=== PATIENT | female | born 1960 ===

== ENCOUNTER 2017-05-17 14:35 | Emergency (ER) | payer OTHER ==
[2017-05-17 14:35] VITALS: BMI 27.3
--- NOTE | 2017-05-17 15:04 | ED PDOC ---
Arrival/HPI - General Historian: Patient - History of Present Illness Time/Duration: Other (see hpi) Quality: Aching Context: Home <Marguerite Jessica P - Last Filed: 05/17/17 14:58> <Salty Poon P - Last Filed: 05/17/17 17:49> - General Chief Complaint: Back Pain Time Seen by Provider: 05/17/17 14:45 - History of Present Illness Narrative History of Present Illness (Text): 05/17/17 14:58 This 56 yo female with pmh sciatica, presents to this ED c/o right lower back pain x 3 days. 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 Patient stated she has had similar symptoms in the past. Patient denies trauma, fever, sob, cp, abdominal pain, pelvic pain, hematuria, urinary symptoms, skin rash, recent travel, sick contact , weakness, paresthesias, urinary retention, GI/ incontinence, n/v, dizziness , or abnormal gait. (Marguerite Jessica) Past Medical History - Provider Review Nursing Documentation Reviewed: Yes - Past History Past History: No Previous - Infectious Disease Hx of Infectious Diseases: None - Cardiac Hx Hypertension: Yes - Endocrine/Metabolic Hx Diabetes Mellitus Type 2: Yes - Integumentary Other/Comment: r elbow scar - Musculoskeletal/Rheumatological Hx Falls: Yes (slipped on ice 4 yrs ago fx r elbow) - Psychiatric Hx Psychophysiologic Disorder: No Hx Anxiety: Yes Hx Bipolar Disorder: No Hx Depression: No Hx Emotional Abuse: No Hx Hallucinations: No Hx Panic Disorder: No Hx Post Traumatic Stress Disorder: No Hx Psychosis: No Hx Physical Abuse: No Hx Schizophrenia: No Hx Sexual Abuse: No Hx Substance Use: No - Surgical History Hx Orthopedic Surgery: Yes - Anesthesia Hx Anesthesia: No Hx Anesthesia Reactions: No Hx Malignant Hyperthermia: No - Suicidal Assessment Feels Threatened In Home Enviroment: No <Marguerite Jessica P - Last Filed: 05/17/17 14:58> Family/Social History - Physician Review Nursing Documentation Reviewed: Yes Family/Social History: Other (noncontributory) Smoking Status: Never Smoked Hx Alcohol Use: No Hx Substance Use: No Hx Substance Use Treatment: No <Marguerite Jessica P - Last Filed: 05/17/17 14:58> Allergies/Home Meds <Marguerite Jessica P - Last Filed: 05/17/17 14:58> <Poon,Salty P - Last Filed: 05/17/17 17:49> Allergies/Adverse Reactions: Allergies No Known Allergies Allergy (Verified 11/19/11 12:26) Home Medications: Home Meds Medication Instructions Recorded Confirmed Atenolol [Tenormin] 50 mg PO DAILY 05/17/17 05/17/17 hydroCHLOROthiazide [Microzide] 12.5 mg PO DAILY 05/17/17 05/17/17 Review of Systems - Review of Systems Constitutional: Normal. absent: Fatigue, Weight Change, Fevers Eyes: Normal ENT: Normal Respiratory: Normal. absent: SOB, Cough, Sputum Cardiovascular: Normal. absent: Chest Pain Gastrointestinal: Normal. absent: Abdominal Pain, Nausea, Vomiting Genitourinary Female: Normal. absent: Dysuria, Frequency, Hematuria, Vaginal Bleeding, Vaginal Discharge Musculoskeletal: Back Pain. absent: Neck Pain, Joint Swelling Skin: Normal. absent: Rash Neurological: Normal. absent: Headache, Dizziness, Focal Weakness, Gait Changes , Speech Changes, Facial Droop, Disequilibrium, Seizure Endocrine: Normal Hemo/Lymphatic: Normal Psychiatric: Normal <Marguerite Jessica P - Last Filed: 05/17/17 14:58> Physical Exam Temperature: Afebrile Blood Pressure: Hypertensive Pulse: Regular Respiratory Rate: Normal Appearance: Positive for: Well-Appearing, Non-Toxic, Comfortable Pain Distress: None Mental Status: Positive for: Alert and Oriented X 3 - Systems Exam Head: Present: Atraumatic, Normocephalic Pupils: Present: PERRL Extroacular Muscles: Present: EOMI Conjunctiva: Present: Normal Mouth: Present: Moist Mucous Membranes Neck: Present: Normal Range of Motion Respiratory/Chest: Present: Clear to Auscultation, Good Air Exchange. No: Respiratory Distress, Accessory Muscle Use Cardiovascular: Present: Regular Rate and Rhythm, Normal S1, S2. No: Murmurs Abdomen: Present: Normal Bowel Sounds. No: Tenderness, Distention, Peritoneal Signs Back: Present: Normal Inspection, Paraspinal Tenderness (Mild right paravertebral tenderness. no vertebral point tenderness. No vertebral step off. No skin rash). No: CVA Tenderness, Midline Tenderness Upper Extremity: Present: Normal Inspection, Normal ROM, NORMAL PULSES, Neurovascularly Intact, Capillary Refill < 2s. No: Cyanosis, Edema Lower Extremity: Present: Normal Inspection, NORMAL PULSES, Normal ROM. No: Edema Neurological: Present: GCS=15, CN II-XII Intact, Speech Normal, Motor Func Grossly Intact, Normal Sensory Function, Normal Cerebellar Funct, Gait Normal, Memory Normal Skin: Present: Warm, Dry, Normal Color. No: Rashes Psychiatric: Present: Alert, Oriented x 3, Normal Insight, Normal Concentration <Marguerite Jessica P - Last Filed: 05/17/17 14:58> Vital Signs Temp Pulse Resp BP Pulse Ox 05/17/17 15:35 82 16 149/89 100 05/17/17 14:35 98.4 F 91 H 18 151/103 H 100 Medical Decision Making Re-evaluation Time: 15:15 Reassessment Condition: Re-examined, Improved <Marguerite Jessica P - Last Filed: 05/17/17 14:58> <Salty Poon P - Last Filed: 05/17/17 17:49> ED Course and Treatment: 05/17/17 15:06 Patient stated she ran out of her BP medication today. Patient stated she will be picking up her refill later today. She denies [place], dizziness, diplopia, dysarthria, neck stiffness, weakness, paresthesias, or abnormal gait. 05/17/17 15:16 Re-evaluation. Patient feels better. Discussed results and plan with patient who expresses understanding. All questions answered and there is agreement with the plan to discharge home with instructions. Patient stable for discharge. Return if symptoms persist or worsen. (Marguerite Jessica) - Medication Orders Current Medication Orders: Discontinued Medications Acetaminophen (Tylenol 325mg Tab) 975 mg PO STAT STA Stop: 05/17/17 15:05 Last Admin: 05/17/17 15:32 Dose: 975 mg MAR Pain/Vitals Document 05/17/17 15:32 HI (Rec: 05/17/17 15:33 AK [id number]) Pain Reassessment Is This A Pain ReAssessment? No Sleep Is patient sleeping during reassessment? No Presence of Pain Presence of Pain Yes Pain Scale Used Pain Scale Used Numeric Location Pain Location Body Site Back - Scribe Statement The provider has reviewed the documentation as recorded by the Scribe <Salty Poon P - Last Filed: 05/17/17 17:49> Disposition/Present on Arrival - Present on Arrival Any Indicators Present on Arrival: No History of DVT/PE: No History of Uncontrolled Diabetes: No Urinary Catheter: No History of Decub. Ulcer: No History Surgical Site Infection Following: None - Disposition Have Diagnosis and Disposition been Completed?: Yes Disposition Time: 15:17 Patient Plan: Discharge <Marguerite Jessica P - Last Filed: 05/17/17 14:58> <Salty Poon P - Last Filed: 05/17/17 17:49> - Disposition Diagnosis: Back pain Disposition: HOME/ ROUTINE Condition: GOOD Discharge Instructions (ExitCare): Back Pain (ED) Additional Instructions: Make sure to take your home medication today for your high blood pressure. Take medication for back pain as instructed with food. return to emergency if symptoms worsen. Do not drive or operate machinery if you take Valium. Prescriptions: Acetaminophen with Codeine [Tylenol with Codeine #3 Tablet] 1 each PO Q6H PRN # 15 tablet PRN Reason: Pain, Severe (8-10) Diazepam [Valium] 2 mg PO DAILY #7 tablet Referrals: Terry Vaughn MD [Primary Care Provider] - Follow up with primary Forms: [facility] (Nepalese), WORK NOTE
[2017-05-17 15:10] VITALS: TEMP 98.4; O2SAT 100
[2017-05-17 16:16] VITALS: BP 149/89; PULSE 82; RESP 16
== END 2017-05-17 15:35 | disposition home or self-care (01) ==
LOC: ED 14:35
DX: M54.5 Low back pain (principal)

== ENCOUNTER 2017-08-29 15:23 | Emergency (ER) | payer OTHER ==
[2017-08-29 15:49] VITALS: BMI 27.9
--- NOTE | 2017-08-29 16:31 | ED PDOC ---
Arrival/HPI - General Chief Complaint: Finger,Hand,&Wrist Time Seen by Provider: 08/29/17 16:29 Historian: Patient - History of Present Illness Narrative History of Present Illness (Text): 08/29/17 16:31 This 57 yo female presents to this ED c/o right index pain and swelling x 2 days. Patient stated she accidentally hit finger against wall at home. She thinks she bent her finger "hard". Patient is right hand dominant. Denies other somatic complains. Time/Duration: Other (see hpi) Context: Home Past Medical History - Provider Review Nursing Documentation Reviewed: Yes - Past History Past History: No Previous - Infectious Disease Hx of Infectious Diseases: None - Cardiac Hx Hypertension: Yes - Endocrine/Metabolic Hx Diabetes Mellitus Type 2: Yes - Integumentary Other/Comment: r elbow scar - Musculoskeletal/Rheumatological Hx Falls: Yes (slipped on ice 4 yrs ago fx r elbow) - Psychiatric Hx Psychophysiologic Disorder: No Hx Anxiety: Yes Hx Bipolar Disorder: No Hx Depression: No Hx Emotional Abuse: No Hx Hallucinations: No Hx Panic Disorder: No Hx Post Traumatic Stress Disorder: No Hx Psychosis: No Hx Physical Abuse: No Hx Schizophrenia: No Hx Sexual Abuse: No Hx Substance Use: No - Surgical History Hx Orthopedic Surgery: Yes Other/Comment: L arm sx - Anesthesia Hx Anesthesia: Yes Hx Anesthesia Reactions: No Hx Malignant Hyperthermia: No - Suicidal Assessment Feels Threatened In Home Enviroment: No Family/Social History - Physician Review Nursing Documentation Reviewed: Yes Family/Social History: Other (noncontributory) Smoking Status: Never Smoked Hx Alcohol Use: No Hx Substance Use: No Hx Substance Use Treatment: No Allergies/Home Meds Allergies/Adverse Reactions: Allergies No Known Allergies Allergy (Verified 11/19/11 12:26) Home Medications: Home Meds Medication Instructions Recorded Confirmed Atenolol [Tenormin] 50 mg PO DAILY 05/17/17 08/29/17 hydroCHLOROthiazide [Microzide] 12.5 mg PO DAILY 05/17/17 08/29/17 Review of Systems - Review of Systems Constitutional: Normal. absent: Fatigue, Weight Change, Fevers, Night Sweats Eyes: Normal ENT: Normal Respiratory: Normal Cardiovascular: Normal Gastrointestinal: Normal Genitourinary Female: Normal Musculoskeletal: Other ((+) right index finger pain) Skin: Normal Neurological: Normal Endocrine: Normal Hemo/Lymphatic: Normal Psychiatric: Normal Physical Exam Vital Signs Temp Pulse Resp BP Pulse Ox 08/29/17 17:15 79 18 97 08/29/17 15:55 166/83 H 08/29/17 15:53 98.7 F 82 18 167/108 H 97 Temperature: Afebrile Blood Pressure: Normal Pulse: Regular Respiratory Rate: Normal Appearance: Positive for: Well-Appearing, Non-Toxic, Comfortable Pain Distress: None Mental Status: Positive for: Alert and Oriented X 3 - Systems Exam Head: Present: Atraumatic, Normocephalic Pupils: Present: PERRL Extroacular Muscles: Present: EOMI Conjunctiva: Present: Normal Mouth: Present: Moist Mucous Membranes Upper Extremity: Present: Normal ROM, NORMAL PULSES, Tenderness (Mild tenderness and swelling right 2nd MPJ area), Swelling, Neurovascularly Intact, Capillary Refill < 2s. No: Cyanosis, Edema, Erythema, Temperature Abnormalties , Deformity Lower Extremity: Present: Normal Inspection, Normal ROM Neurological: Present: GCS=15, CN II-XII Intact, Speech Normal Skin: Present: Warm, Dry, Normal Color. No: Rashes Psychiatric: Present: Alert, Oriented x 3, Normal Insight, Normal Concentration Medical Decision Making ED Course and Treatment: 08/29/17 17:24 Patient is wearing a finger splint already. Re-evaluation. Patient feels better. Discussed results and plan with patient who expresses understanding. All questions answered and there is agreement with the plan to discharge home with instructions. Patient stable for discharge. Return if symptoms persist or worsen. Re-evaluation Time: 17:25 Reassessment Condition: Re-examined, Improved - RAD Interpretation Narrative RAD Interpretations (Text): 08/29/17 17:25 Finger x-rays: No fx. Radiology Orders: 08/29/17 16:29 HAND RIGHT 2ND DIGIT (FINGER) [RAD] Stat - Medication Orders Current Medication Orders: Discontinued Medications Acetaminophen (Tylenol 325mg Tab) 650 mg PO STAT STA Stop: 08/29/17 16:31 Disposition/Present on Arrival - Present on Arrival Any Indicators Present on Arrival: No History of DVT/PE: No History of Uncontrolled Diabetes: No Urinary Catheter: No History of Decub. Ulcer: No History Surgical Site Infection Following: None - Disposition Have Diagnosis and Disposition been Completed?: Yes Diagnosis: Finger sprain Disposition: HOME/ ROUTINE Disposition Time: 17:25 Patient Plan: Discharge Patient Problems: Current Active Problems Problem Status Onset Finger sprain Acute Condition: IMPROVED Discharge Instructions (ExitCare): Finger Sprain (DC) Additional Instructions: Call private doctor for follow up visit in 1-2 days. Use home finger splint for at least 5 days. Return to emergency if pain worsen. Prescriptions: Famotidine [Pepcid] 40 mg PO DAILY #10 tablet Ibuprofen [Motrin] 400 mg PO Q8H PRN #20 tab PRN Reason: Pain, Severe (8-10) Referrals: Luciana Robles MD [Primary Care Provider] - Follow up with primary Forms: [facility] (Tongan), WORK NOTE
[2017-08-29 17:48] VITALS: BP 112/71; PULSE 885; RESP 119; TEMP 988; O2SAT 99
--- NOTE | 2017-08-30 07:23 | RAD ---
PROCEDURE: Right Index finger radiographs. HISTORY: pain s/p trauma COMPARISON: None. TECHNIQUE: AP radiograph of the right hand, as well as spot oblique and lateral images of index finger were obtained. FINDINGS: RIGHT INDEX FINGER: Normal right index finger, without fracture or focal lesion. Remainder of the right hand (as seen on the AP view) grossly intact. JOINTS: Normal. SOFT TISSUES: Limited edema seen at the mid right index finger. No retained radiodense foreign body or emphysema soft tissue changes are seen related. OTHER FINDINGS: None. IMPRESSION: No acute fracture dislocation right index finger. Limited local soft tissue edema is seen.
== END 2017-08-29 17:51 | disposition home or self-care (01) ==
LOC: ED 15:23
DX: S63.610A Unspecified sprain of right index finger, initial encounter (principal); W22.01XA Walked into wall, initial encounter; Y92.009 Unspecified place in unspecified non-institutional (private) residence as the place of occurrence of the external cause

== ENCOUNTER 2017-11-10 08:16 | Emergency (ER) | payer OTHER ==
[2017-11-10 08:26] VITALS: RESP 19; BMI 26.3
[2017-11-10 09:35] VITALS: BP 143/79; PULSE 77; TEMP 98.2; O2SAT 99
--- NOTE | 2017-11-10 09:59 | RAD ---
PROCEDURE: Left Thumb radiographs. HISTORY: r/o fx COMPARISON: None. TECHNIQUE: AP radiograph of the left hand, as well as spot oblique and lateral images of thumb were obtained. FINDINGS: LEFT THUMB: Normal left thumb, without fracture or focal lesion. Remainder of the left hand (as seen on the AP view) grossly unremarkable. JOINTS: Normal. SOFT TISSUES: Normal. OTHER FINDINGS: None. IMPRESSION: Unremarkable left thumb radiographs.
--- NOTE | 2017-11-10 10:12 | ED PDOC ---
Arrival/HPI - General Chief Complaint: Finger,Hand,&Wrist Time Seen by Provider: 11/10/17 08:40 Historian: Patient - History of Present Illness Narrative History of Present Illness (Text): 11/10/17 09:00 57 year old female, whose PMH includes hypertension and diabetes, who presents to the emergency department complaining of left thumb pain for over a month. Patient is right handed and denies any trauma or numbness. No other complaints were made. Time/Duration: > month Symptom Onset: Gradual Symptom Course: Unchanged Past Medical History - Provider Review Nursing Documentation Reviewed: Yes - Past History Past History: No Previous - Infectious Disease Hx of Infectious Diseases: None - Reproductive Menopause: Yes - Cardiac Hx Hypertension: Yes - Pulmonary Hx Respiratory Disorders: No - Neurological Hx Neurological Disorder: No - HEENT Hx HEENT Disorder: No - Renal Hx Renal Disorder: No - Endocrine/Metabolic Hx Diabetes Mellitus Type 2: Yes - Hematological/Oncological Hx Blood Disorders: No - Integumentary Hx Dermatological Disorder: Yes Other/Comment: r elbow scar - Musculoskeletal/Rheumatological Hx Falls: Yes (slipped on ice 4 yrs ago fx r elbow) - Gastrointestinal Hx Gastrointestinal Disorders: No - Genitourinary/Gynecological Hx Genitourinary Disorders: No - Psychiatric Hx Psychophysiologic Disorder: No Hx Anxiety: Yes Hx Bipolar Disorder: No Hx Depression: No Hx Emotional Abuse: No Hx Hallucinations: No Hx Panic Disorder: No Hx Post Traumatic Stress Disorder: No Hx Psychosis: No Hx Physical Abuse: No Hx Schizophrenia: No Hx Sexual Abuse: No Hx Substance Use: No - Surgical History Hx Orthopedic Surgery: Yes Other/Comment: L arm sx - Anesthesia Hx Anesthesia: Yes Hx Anesthesia Reactions: No Hx Malignant Hyperthermia: No - Suicidal Assessment Feels Threatened In Home Enviroment: No Family/Social History - Physician Review Nursing Documentation Reviewed: Yes Family/Social History: Unknown Family HX Smoking Status: Never Smoked Hx Alcohol Use: No Hx Substance Use: No Hx Substance Use Treatment: No Allergies/Home Meds Allergies/Adverse Reactions: Allergies No Known Allergies Allergy (Verified 11/10/17 08:27) Home Medications: Home Meds Medication Instructions Recorded Confirmed Atenolol [Tenormin] 50 mg PO DAILY 05/17/17 11/10/17 hydroCHLOROthiazide [Microzide] 12.5 mg PO DAILY 05/17/17 11/10/17 Review of Systems - Physician Review All systems were reviewed & negative as marked: Yes - Review of Systems Respiratory: absent: SOB Cardiovascular: absent: Chest Pain Musculoskeletal: Other (left thumb pain) Physical Exam Vital Signs Reviewed: Yes Vital Signs Temp Pulse Resp BP Pulse Ox 11/10/17 09:34 98.2 F 77 19 143/79 99 11/10/17 08:27 98.8 F 73 19 140/81 98 11/10/17 08:25 98.8 F 73 19 140/81 98 Temperature: Afebrile Blood Pressure: Normal Pulse: Regular Respiratory Rate: Normal Appearance: Positive for: Well-Appearing, Non-Toxic, Comfortable Pain Distress: None Mental Status: Positive for: Alert and Oriented X 3 - Systems Exam Head: Present: Atraumatic, Normocephalic Pupils: Present: PERRL Extroacular Muscles: Present: EOMI Conjunctiva: Present: Normal Upper Extremity: Present: Normal Inspection, Normal ROM, NORMAL PULSES, Neurovascularly Intact, Capillary Refill < 2s, Other (positive trigger finger on left thumb with FROM). No: Cyanosis, Edema, Deformity Neurological: Present: GCS=15, CN II-XII Intact, Speech Normal Skin: Present: Warm, Dry, Normal Color. No: Rashes Psychiatric: Present: Alert, Oriented x 3, Normal Insight, Normal Concentration Medical Decision Making ED Course and Treatment: 11/10/17 Impression: 57 year old female with positive trigger finger on left thumb and FROM. Plan: -- Reassess and disposition Progress Notes: Finger was splinted and patient was sent to PMD. Patient is stable for d/c. - RAD Interpretation Radiology Orders: 11/10/17 08:41 HAND LEFT THUMB [RAD] Stat - Scribe Statement The provider has reviewed the documentation as recorded by the Scribe Alexandra Ruiz Provider Scribe Attestation: All medical record entries made by the Scribe were at my direction and personally dictated by me. I have reviewed the chart and agree that the record accurately reflects my personal performance of the history, physical exam, medical decision making, and the department course for this patient. I have also personally directed, reviewed, and agree with the discharge instructions and disposition. Disposition/Present on Arrival - Present on Arrival Any Indicators Present on Arrival: No History of DVT/PE: No History of Uncontrolled Diabetes: No Urinary Catheter: No History of Decub. Ulcer: No History Surgical Site Infection Following: None - Disposition Have Diagnosis and Disposition been Completed?: Yes Diagnosis: Trigger finger Disposition: HOME/ ROUTINE Disposition Time: 09:00 Condition: GOOD Discharge Instructions (ExitCare): Trigger Finger (DC) Print Language: FRENCH Additional Instructions: Thank you for letting us take care of you today. The emergency medical care you received today was directed at your acute symptoms. If you were prescribed any medication, please fill it and take as directed. It may take several days for your symptoms to resolve. Return to the Emergency Department if your symptoms worsen, do not improve, or if you have any other problems. Please contact your doctor or call one of the physicians/clinics you have been referred to that are listed on the Patient Visit Information form that is included in your discharge packet. Bring any paperwork you were given at discharge with you along with any medications you are taking to your follow up visit. Our treatment cannot replace ongoing medical care by a primary care provider (PCP) outside of the emergency department. Thank you for allowing the [facility] team to be part of your care today. Follow up with your primary doctor in 2-3 days. You may be referred to a hand doctor for further management. Angie por dejarnos atenderlo hoy. La atencin mdica de emergencia que recibi hoy estaba dirigida a maye sntomas agudos. Si le prescribieron algn medicamento, llnelo y tome segn las indicaciones. Maye sntomas pueden tardar varios green en resolverse. Regrese al Departamento de Emergencia si maye s ntomas empeoran, no mejoran o si tiene algn otro problema. Comunquese con gaytan mdico o llame a lj de los mdicos / clnicas a los que call sido referido que figura en el formulario de Informacin de visita del paciente que se incluye en gaytan paquete de padmaja. Traiga todos los documentos que recibi al momento del padmaja junto con los medicamentos que est tomando en gaytan visita de seguimiento. Nuestro tratamiento no puede reemplazar la atencin mdica en curso por parte de un proveedor de atencin primaria (PCP) fuera del departamento de emergencias. Angie por permitir que el equipo de [facility] sea parte de gaytan cuidado hoy. Josie un seguimiento con gaytan mdico de cabecera en 2-3 green. Es posible que lo remitan a un mdico de atencin para gaytan manejo posterior. Prescriptions: Ibuprofen [Motrin] 600 mg PO Q6 PRN #20 tab PRN Reason: Pain, Moderate (4-7) Referrals: Nyla Duran DO [Primary Care Provider] - Follow up with primary Forms: [employer] (Greek)
== END 2017-11-10 09:35 | disposition home or self-care (01) ==
LOC: ED 08:16
DX: M65.312 Trigger thumb, left thumb (principal)

== ENCOUNTER 2017-11-24 06:27 | Emergency (ER) | payer OTHER ==
[2017-11-24 06:27] VITALS: BMI 26.3
--- NOTE | 2017-11-24 07:24 | ED PDOC ---
Arrival/HPI - General Historian: Patient - History of Present Illness Time/Duration: Prior to Arrival Symptom Onset: Gradual Symptom Course: Improving Activities at Onset: Rest Context: Home - General Chief Complaint: Shortness Of Breath Time Seen by Provider: 11/24/17 07:03 - History of Present Illness Narrative History of Present Illness (Text): 11/24/17 07:20 Patient is a 57 F with a history of hypertension and asthma presenting with complaints of shortness of breath, chest congestion, and non-productive cough. Patient states she feels as though she has a "cold," and came because she was having problems breathing clearly the past few days. Patient state that currently with NC 2L she is feeling better. Patient has an appoint with her PMD Dr. Nyla Duran 9:00 this morning. Patient denies fevers, chills, chest pain, chest pressure, palpitations, nausea, vomiting, diarrhea, dysuria, headaches, abdominal pain, body aches. 11/24/17 08:52 (Vinny Patiño) Past Medical History - Provider Review Nursing Documentation Reviewed: Yes - Past History Past History: No Previous - Infectious Disease Hx of Infectious Diseases: None - Reproductive Menopause: Yes - Cardiac Hx Hypertension: Yes - Pulmonary Hx Respiratory Disorders: No - Neurological Hx Neurological Disorder: No - HEENT Hx HEENT Disorder: No - Renal Hx Renal Disorder: No - Endocrine/Metabolic Hx Diabetes Mellitus Type 2: Yes - Hematological/Oncological Hx Blood Disorders: No - Integumentary Hx Dermatological Disorder: Yes Other/Comment: r elbow scar - Musculoskeletal/Rheumatological Hx Falls: Yes (slipped on ice 4 yrs ago fx r elbow) - Gastrointestinal Hx Gastrointestinal Disorders: No - Genitourinary/Gynecological Hx Genitourinary Disorders: No - Psychiatric Hx Psychophysiologic Disorder: No Hx Anxiety: Yes Hx Bipolar Disorder: No Hx Depression: No Hx Emotional Abuse: No Hx Hallucinations: No Hx Panic Disorder: No Hx Post Traumatic Stress Disorder: No Hx Psychosis: No Hx Physical Abuse: No Hx Schizophrenia: No Hx Sexual Abuse: No Hx Substance Use: No - Surgical History Hx Orthopedic Surgery: Yes Other/Comment: L arm sx - Anesthesia Hx Anesthesia: Yes Hx Anesthesia Reactions: No Hx Malignant Hyperthermia: No - Suicidal Assessment Feels Threatened In Home Enviroment: No Family/Social History - Physician Review Nursing Documentation Reviewed: Yes Family/Social History: Other (non-contributory) Smoking Status: Never Smoked Hx Alcohol Use: No Hx Substance Use: No Hx Substance Use Treatment: No Allergies/Home Meds Allergies/Adverse Reactions: Allergies No Known Allergies Allergy (Verified 11/10/17 08:27) Home Medications: Home Meds Medication Instructions Recorded Confirmed Atenolol [Tenormin] 50 mg PO DAILY 05/17/17 11/24/17 hydroCHLOROthiazide [Microzide] 12.5 mg PO DAILY 05/17/17 11/24/17 Review of Systems - Physician Review All systems were reviewed & negative as marked: Yes - Review of Systems Constitutional: absent: Fatigue, Fevers Respiratory: SOB, Cough. absent: Sputum, Wheezing Cardiovascular: absent: Chest Pain, Palpitations Gastrointestinal: absent: Abdominal Pain, Diarrhea, Nausea, Vomiting Genitourinary Female: absent: Dysuria Musculoskeletal: absent: Back Pain Skin: absent: Rash Neurological: absent: Headache, Dizziness Psychiatric: absent: Anxiety Physical Exam Vital Signs Reviewed: Yes Temperature: Afebrile Blood Pressure: Normal Pulse: Regular Respiratory Rate: Normal Appearance: Positive for: Well-Appearing, Non-Toxic, Comfortable Pain Distress: None Mental Status: Positive for: Alert and Oriented X 3 - Systems Exam Head: Present: Atraumatic, Normocephalic Pupils: Present: PERRL Extroacular Muscles: Present: EOMI Conjunctiva: Present: Normal Ears: Present: Normal Mouth: Present: Moist Mucous Membranes Pharnyx: Present: Normal. No: ERYTHEMA, EXUDATE, TONSILS ENLARGED, Uvular Deviation Nose (Internal): Present: Normal Inspection. No: Boggy Neck: Present: Normal Range of Motion Respiratory/Chest: Present: Clear to Auscultation, Good Air Exchange, Respiratory Distress. No: Wheezes, Rhonchi Cardiovascular: Present: Regular Rate and Rhythm, Normal S1, S2. No: Murmurs Abdomen: Present: Normal Bowel Sounds. No: Tenderness, Distention Upper Extremity: Present: Normal Inspection. No: Edema Lower Extremity: Present: Normal Inspection. No: Edema Neurological: Present: GCS=15, CN II-XII Intact, Speech Normal Skin: Present: Warm, Normal Color Psychiatric: Present: Alert, Oriented x 3, Normal Insight, Normal Concentration Vital Signs Temp Pulse Resp BP Pulse Ox 11/24/17 07:15 17 11/24/17 06:43 98.3 F 98 H 18 152/86 H 96 Medical Decision Making Re-evaluation Time: 08:53 - RAD Interpretation Telephone Maintenance Mechanic: ED Physician - EKG Interpretation Interpreted by ED Physician: Yes Type: 12 lead EKG ED Course and Treatment: 11/24/17 In agreement with resident note, which includes further HPI details. Patient was seen and evaluated with resident, came up with plan and treatment together. 11/24/17 08:49 Chest X-ray shows no acute processes. Interpreted by me. (Marques Hernadez) 11/24/17 07:26 -Will administer Duonebs and re-assess -2 view chest x-ray 11/24/17 08:52 Patient's symptoms improved with duonebs, CXR shows no signs of pneumonia, official read pending (Vinny Patiño) - RAD Interpretation Radiology Orders: 11/24/17 07:34 CHEST TWO VIEWS (PA/LAT) [RAD] Stat - Medication Orders Current Medication Orders: Discontinued Medications Albuterol/Ipratropium (Duoneb 3 Mg/0.5 Mg (3 Ml) Ud) 3 ml IH Q15M JULISSA Stop: 11/24/17 08:01 Last Admin: 11/24/17 08:03 Dose: 3 ml Disposition/Present on Arrival - Present on Arrival Any Indicators Present on Arrival: No History of DVT/PE: No History of Uncontrolled Diabetes: No Urinary Catheter: No History of Decub. Ulcer: No History Surgical Site Infection Following: None - Disposition Have Diagnosis and Disposition been Completed?: Yes Disposition Time: 08:53 Patient Plan: Discharge - Disposition Diagnosis: Upper respiratory infection Disposition: HOME/ ROUTINE Condition: GOOD Discharge Instructions (ExitCare): Asthma in Adults, Viral Upper Respiratory Infection, Adult (DC) Additional Instructions: Ms. Loaiza, thank you for letting us take care of you today. Your provider was Dr. Patiño. You were treated for your shortness of breath. The emergency medical care you received today was directed at your acute symptoms. If you were prescribed any medication, please fill it and take as directed. It may take several days for your symptoms to resolve. Return to the Emergency Department if your symptoms worsen, do not improve, or if you have any other problems. Please contact your primary care doctor Dr. Duran and follow up with the appointment you had today. Bring any paperwork you were given at discharge with you along with any medications you are taking to your follow up visit. Our treatment cannot replace ongoing medical care by a primary care provider (PCP) outside of the emergency department. Thank you for allowing the [facility] team to be part of your care today. If you had an X-Ray or CT scan: A Radiologist will review the ED reading if any change in treatment is needed we will contact you. If you had a blood, urine, or wound culture: It will take several days for the results, if any change in treatment is needed we will contact you. If you had an STI test: It will take 48 hours for the results. Please call after 1 week if you have not heard back. Prescriptions: Albuterol HFA [Ventolin HFA 90 mcg/actuation (8 g)] 2 puff IH Q4 #1 puff Referrals: Nyla Duran DO [Family Provider] - Follow up with primary Forms: [employer] (Persian)
[2017-11-24] MEDS: Albuterol-Ipratrop 3 mg / 0.5 (3 ml) UD IH SCH ×3 (07:49→08:18)
--- NOTE | 2017-11-24 08:49 | RAD ---
HISTORY: shortness of breath COMPARISON: 10/10/2015 TECHNIQUE: Chest PA and lateral FINDINGS: LUNGS: No active pulmonary disease. PLEURA: No significant pleural effusion identified. No pneumothorax apparent. CARDIOVASCULAR: Normal. OSSEOUS STRUCTURES: No significant abnormalities. VISUALIZED UPPER ABDOMEN: Normal. OTHER FINDINGS: None. IMPRESSION: No active disease.
[2017-11-24 08:53] VITALS: BP 150/99; O2SAT 100
[2017-11-24 09:00] VITALS: PULSE 108; RESP 18; TEMP 98
--- NOTE | 2017-11-24 13:17 | CARD ---
APPROVED REPORT EKG Measurement Heart [id number] <Conclusion> Normal sinus rhythm Possible Left atrial enlargement Left ventricular hypertrophy Abnormal ECG
== END 2017-11-24 09:00 | disposition home or self-care (01) ==
LOC: ED 06:27
DX: J06.9 Acute upper respiratory infection, unspecified (principal)

== ENCOUNTER 2018-05-24 12:27 | Emergency (ER) | payer OTHER ==
[2018-05-24 12:28] VITALS: BMI 26.3
--- NOTE | 2018-05-24 13:02 | ED PDOC ---
Arrival/HPI - General Chief Complaint: Respiratory Distress Time Seen by Provider: 05/24/18 12:43 Historian: Patient - History of Present Illness Narrative History of Present Illness (Text): 05/24/18 12:59 A 57 year old female, whose past medical history includes HTN and asthma, presents to the emergency department with a complaint of 1 month duration, worsening shortness of breath. The patient states that her chest tightness, shortness of breath, and wheezing worsened last night. She states that it was becoming difficult for her to breath last night which prompted her to come into the emergency department for further evaluation. Patient reports that her symptoms feel similar to her asthma. The patient denies fevers, chills, headache, dizziness, cough, sore throat, chest pain, abdominal pain, nausea, vomiting, diarrhea, neck/ back pain, urinary/ bowel symptoms, trauma/ injury, or any other complaints. Time/Duration: Other (1 month/ Last night) Symptom Onset: Gradual Symptom Course: Worsening Activities at Onset: Rest, Light Context: Home Past Medical History - Provider Review Nursing Documentation Reviewed: Yes - Past History Past History: No Previous - Infectious Disease Hx of Infectious Diseases: None - Cardiac Hx Hypertension: Yes - Pulmonary Hx Respiratory Disorders: No - Neurological Hx Neurological Disorder: No - HEENT Hx HEENT Disorder: No - Renal Hx Renal Disorder: No - Endocrine/Metabolic Hx Diabetes Mellitus Type 2: Yes - Hematological/Oncological Hx Blood Disorders: No - Integumentary Hx Dermatological Disorder: Yes Other/Comment: r elbow scar - Musculoskeletal/Rheumatological Hx Falls: Yes (slipped on ice 4 yrs ago fx r elbow) - Gastrointestinal Hx Gastrointestinal Disorders: No - Genitourinary/Gynecological Hx Genitourinary Disorders: No - Psychiatric Hx Psychophysiologic Disorder: No Hx Anxiety: Yes Hx Bipolar Disorder: No Hx Depression: No Hx Emotional Abuse: No Hx Hallucinations: No Hx Panic Disorder: No Hx Post Traumatic Stress Disorder: No Hx Psychosis: No Hx Physical Abuse: No Hx Schizophrenia: No Hx Sexual Abuse: No Hx Substance Use: No - Surgical History Hx Orthopedic Surgery: Yes Other/Comment: L arm sx - Anesthesia Hx Anesthesia: Yes Hx Anesthesia Reactions: No Hx Malignant Hyperthermia: No - Suicidal Assessment Feels Threatened In Home Enviroment: No Family/Social History - Physician Review Nursing Documentation Reviewed: Yes Family/Social History: No Known Family HX Smoking Status: Never Smoked Hx Alcohol Use: No Hx Substance Use: No Hx Substance Use Treatment: No Allergies/Home Meds Allergies/Adverse Reactions: Allergies No Known Allergies Allergy (Verified 05/24/18 12:37) Home Medications: Home Meds Medication Instructions Recorded Confirmed Atenolol [Tenormin] 50 mg PO DAILY 05/17/17 05/24/18 hydroCHLOROthiazide [Microzide] 12.5 mg PO DAILY 05/17/17 05/24/18 Review of Systems - Physician Review All systems were reviewed & negative as marked: Yes - Review of Systems Constitutional: absent: Fevers Respiratory: SOB, Wheezing Gastrointestinal: absent: Abdominal Pain, Stool Changes, Diarrhea, Nausea, Vomiting Genitourinary Female: absent: Urine Output Changes Musculoskeletal: absent: Back Pain, Neck Pain Neurological: absent: Headache, Dizziness Physical Exam - Physical Exam Narrative Physical Exam (Text): 05/24/18 13:03 Gen: VS reviewed, alert, well developed, well nourished, nontoxic, mild distress Eye: EOMI, PERRL Neck: no JVD, supple, no adenopathy CV: regular rate, regular rhythm, no rubs,no murmur, S1, S2 Pulm: no distress, no rhonchi, breath sounds equal, no rales. Good air exchange bilaterally. Mild bilateral expiratory wheezing. Abd: soft, nontender, no guarding, no rebound, no rigidity Ext: no edema Skin: good color, no rash, no cyanosis Psych: responds appropriately to questions, normal affect Neuro: oriented x3, CN2-12 intact grossly, motor intact, sensation intact. Vital Signs Reviewed: Yes Vital Signs Temp Pulse Resp BP Pulse Ox 05/24/18 12:35 98.7 F 80 18 160/98 H 98 Temperature: Afebrile Blood Pressure: Hypertensive Pulse: Regular Respiratory Rate: Normal Appearance: Positive for: Well-Appearing, Non-Toxic, Comfortable Pain Distress: None Mental Status: Positive for: Alert and Oriented X 3 Medical Decision Making ED Course and Treatment: 05/24/18 13:04 Impression: A 57 year old female presents to the emergency department for a complaint of worsening shortness of breath. Plan: -- Duoneb and predniSONE -- Reassess and disposition Prior Visits: Notes and results from previous visits were reviewed. Progress Notes: 05/24/18 14:37 patient feel much better and ready to go home. repeat lung exam, wheezing resolved. - Medication Orders Current Medication Orders: Albuterol/Ipratropium (Duoneb 3 Mg/0.5 Mg (3 Ml) Ud) 3 ml IH Q15M JULISSA Stop: 05/24/18 13:31 Discontinued Medications Prednisone (Prednisone Tab) 60 mg PO STAT ONE Stop: 05/24/18 12:51 - Scribe Statement The provider has reviewed the documentation as recorded by the Darleneibe Kathya Watkins Provider Scribe Attestation: All medical record entries made by the Scribe were at my direction and personally dictated by me. I have reviewed the chart and agree that the record accurately reflects my personal performance of the history, physical exam, medical decision making, and the department course for this patient. I have also personally directed, reviewed, and agree with the discharge instructions and disposition. Disposition/Present on Arrival - Present on Arrival Any Indicators Present on Arrival: No History of DVT/PE: No History of Uncontrolled Diabetes: No Urinary Catheter: No History of Decub. Ulcer: No History Surgical Site Infection Following: None - Disposition Have Diagnosis and Disposition been Completed?: Yes Diagnosis: Asthma exacerbation Disposition: HOME/ ROUTINE Disposition Time: 14:40 Patient Plan: Discharge Condition: STABLE Discharge Instructions (ExitCare): Asthma, Adult (DC) Prescriptions: Albuterol HFA [Ventolin HFA 90 mcg/actuation (8 g)] 1 puff IH Q4H #1 inhaler Prednisone [Deltasone] 20 mg PO DAILY 5 Days #10 tablet Forms: [employer] (South Korean)
[2018-05-24] MEDS: Albuterol-Ipratrop 3 mg / 0.5 (3 ml) UD IH SCH ×3 (13:10→13:41)
[2018-05-24 14:19] VITALS: BP 149/73
[2018-05-24 14:45] VITALS: PULSE 79; RESP 18; TEMP 98.2; O2SAT 97
== END 2018-05-24 14:46 | disposition home or self-care (01) ==
LOC: ED 12:27
DX: J45.901 Unspecified asthma with (acute) exacerbation (principal)

== ENCOUNTER 2018-06-29 17:54 | Emergency (ER) | payer OTHER ==
[2018-06-29 17:54] VITALS: BMI 26.3
--- NOTE | 2018-06-29 18:05 | ED PDOC ---
Arrival/HPI - General Historian: Patient - History of Present Illness Narrative History of Present Illness (Text): 06/29/18 18:02 58 y/o female, pmh including htn/asthma/dm, nkda, post menopausal, c/o asthma exacerbation started yesterday. PT. stated that she started wheezing and coughing yesterday, worsened today, no chest pain, no dizziness, no palpitation, no numbness or tingling, no change in vision, no rash, no other medical or psychological complaints. Past Medical History - Provider Review Nursing Documentation Reviewed: Yes - Past History Past History: No Previous - Infectious Disease Hx of Infectious Diseases: None - Cardiac Hx Hypertension: Yes - Pulmonary Hx Respiratory Disorders: No - Neurological Hx Neurological Disorder: No - HEENT Hx HEENT Disorder: No - Renal Hx Renal Disorder: No - Endocrine/Metabolic Hx Diabetes Mellitus Type 2: Yes - Hematological/Oncological Hx Blood Disorders: No - Integumentary Hx Dermatological Disorder: Yes Other/Comment: r elbow scar - Musculoskeletal/Rheumatological Hx Falls: Yes (slipped on ice 4 yrs ago fx r elbow) - Gastrointestinal Hx Gastrointestinal Disorders: No - Genitourinary/Gynecological Hx Genitourinary Disorders: No - Psychiatric Hx Psychophysiologic Disorder: No Hx Anxiety: Yes Hx Bipolar Disorder: No Hx Depression: No Hx Emotional Abuse: No Hx Hallucinations: No Hx Panic Disorder: No Hx Post Traumatic Stress Disorder: No Hx Psychosis: No Hx Physical Abuse: No Hx Schizophrenia: No Hx Sexual Abuse: No Hx Substance Use: No - Surgical History Hx Orthopedic Surgery: Yes Other/Comment: L arm sx - Anesthesia Hx Anesthesia: Yes Hx Anesthesia Reactions: No Hx Malignant Hyperthermia: No - Suicidal Assessment Feels Threatened In Home Enviroment: No Family/Social History - Physician Review Nursing Documentation Reviewed: Yes Family/Social History: Unknown Family HX Smoking Status: Never Smoked Hx Alcohol Use: No Hx Substance Use: No Hx Substance Use Treatment: No Allergies/Home Meds Allergies/Adverse Reactions: Allergies No Known Allergies Allergy (Verified 05/24/18 12:37) Home Medications: Home Meds Medication Instructions Recorded Confirmed Atenolol [Tenormin] 50 mg PO DAILY 05/17/17 05/24/18 hydroCHLOROthiazide [Microzide] 12.5 mg PO DAILY 05/17/17 05/24/18 Review of Systems - Review of Systems Constitutional: absent: Fatigue, Fevers Eyes: absent: Vision Changes ENT: absent: Hearing Changes Respiratory: Cough, Sputum, Wheezing. absent: SOB Cardiovascular: absent: Chest Pain Gastrointestinal: absent: Abdominal Pain, Nausea, Vomiting Musculoskeletal: absent: Arthralgias, Back Pain Skin: absent: Rash, Pruritis Neurological: absent: Headache, Dizziness Psychiatric: absent: Anxiety, Depression, Suicidal Ideation Physical Exam Vital Signs Reviewed: Yes Temperature: Afebrile Blood Pressure: Hypertensive Pulse: Regular Respiratory Rate: Normal Appearance: Positive for: Well-Appearing, Non-Toxic, Comfortable Pain Distress: None Mental Status: Positive for: Alert and Oriented X 3 - Systems Exam Head: Present: Atraumatic, Normocephalic Pupils: Present: PERRL Extroacular Muscles: Present: EOMI Conjunctiva: Present: Normal Ears: Present: NORMAL TM, Normal Canal. No: Erythema Mouth: Present: Moist Mucous Membranes Pharnyx: Present: Normal. No: ERYTHEMA, EXUDATE, TONSILS ENLARGED Nose (External): Present: Atraumatic. No: Abrasion, Contusion, Laceration Nose (Internal): Present: Normal Inspection, No Active Bleeding. No: Rhinorrhea, Septal Hematoma, Epistaxis Neck: Present: Normal Range of Motion. No: Meningeal Signs, MIDLINE TENDERNESS, Paraspinal Tenderness, Lymphadenopathy, Trachea Midline Respiratory/Chest: Present: Wheezes, Decreased Breath Sounds. No: Respiratory Distress, Accessory Muscle Use, Rales, Retracting, Rhonchi, Tachypneic, Tender to Palpation Cardiovascular: Present: Regular Rate and Rhythm, Normal S1, S2. No: Murmurs Abdomen: No: Tenderness, Distention, Peritoneal Signs, Rebound, Guarding Back: Present: Normal Inspection Upper Extremity: Present: Normal Inspection. No: Cyanosis, Edema Lower Extremity: Present: Normal Inspection. No: Edema Neurological: Present: GCS=15, CN II-XII Intact, Speech Normal, Motor Func Grossly Intact, Gait Normal, Memory Normal Skin: Present: Warm, Dry, Normal Color. No: Rashes Psychiatric: Present: Alert, Oriented x 3, Normal Insight, Normal Concentration Medical Decision Making ED Course and Treatment: 06/29/18 18:07 -Chest xray -Duoneb/prednisone/singulair/clonidine -Observe and reassess 06/29/18 23:21 -Chest xray show possible CHF? -Repeat v/s is stable -zithromax ordered. -Glucose 342, IVF ordered and insulin as needed, will d/c with finger stick unde r 300. -Labs are non-significant, BNP and Trop are negative after 24 hours. -Pt. feels much better, wheezing resolved with no rhonci and increase in aeration bilaterally, advise the patient to follow up with the pmd about the management for her poorly controlled DM, walking without shortness of breath and speaking in full sentences. -Discharge home with zithromax, prednisone, albuterol MDI, singulair, follow up with your own pmd within 2 days, return to the ER for any new or worsening signs or symptoms. - RAD Interpretation Radiology Orders: -Chest xray LUNGS: There is evidence for pulmonary venous congestion compatible with mild CHF. PLEURAL SPACES: No pleural effusion or pneumothorax. MEDIASTINUM: The cardiac silhouette is enlarged. BONES: No acute osseous abnormality. IMPRESSION: 1. The cardiac silhouette is enlarged. 2. There is evidence for pulmonary venous congestion compatible with mild CHF. Electronically signed on Jun 29, 2018 8:43:25 PM EST by: Marcelo Funes M.D., AMPARO Certified By ABR & CBCCT Fellowship Trained MRI and CT Specialist -Chest xray [place] radiologist official reading: peribronchial thickening with no evidence of pneumonia Spd Manager: Radiologist - PA / POLYMERIZATION OVEN OPERATOR / Resident Statement MD/DO has reviewed & agrees with the documentation as recorded. Disposition/Present on Arrival - Present on Arrival Any Indicators Present on Arrival: No History of DVT/PE: No History of Uncontrolled Diabetes: No Urinary Catheter: No History of Decub. Ulcer: No History Surgical Site Infection Following: None - Disposition Have Diagnosis and Disposition been Completed?: Yes Diagnosis: Bronchitis, Asthma Disposition: HOME/ ROUTINE Disposition Time: 20:37 Patient Plan: Discharge Condition: IMPROVED Discharge Instructions (ExitCare): Asthma in Adults, Acute Bronchitis Additional Instructions: -Discharge home with zithromax, prednisone, albuterol MDI, singulair, follow up with your own pmd within 2 days, return to the ER for any new or worsening signs or symptoms. Prescriptions: Albuterol HFA [Ventolin HFA 90 mcg/actuation (8 g)] 2 puff IH [id number] PRN #1 in PRN Reason: Other Azithromycin [Zithromax] 250 mg PO DAILY #4 tab Montelukast Sodium [Singulair] 10 mg PO DAILY #21 tab Prednisone 50 mg PO DAILY #5 tablet Referrals: Gerri Vasquez MD [Staff Provider] - Follow up with primary [facility] [place] - Follow up with primary Forms: WORK NOTE
[2018-06-29] MEDS: Albuterol-Ipratrop 3 mg / 0.5 (3 ml) UD IH SCH ×3 (18:59→19:30)
[2018-06-29 20:46] VITALS: TEMP 97.9
[2018-06-29 21:45] LABS: BASO # 0.04 K/mm3 (0.0-2.0); BASO % 0.4 % (0.0-3.0); EOS # 0.1 (0.0-0.7); EOS % 1.4 % (1.5-5.0); GRAN # 8.51 (1.4-6.5); GRAN % 82.9 % (50.0-68.0); HEMOGLOBIN 12.3 g/dL (12.0-16.0); LYMPH # 1.4 (1.2-3.4); LYMPH % 13.3 % (22.0-35.0); MEAN CELL VOLUME 79.8 fl (80.0-105.0); MEAN CORPUSCULAR HEMOGLOBIN 27.6 pg (25.0-35.0); MEAN CORPUSCULAR HGB CONC 34.6 g/dl (31.0-37.0); MEAN PLATELET VOLUME 9.6 fl (7.0-11.0); MONO # 0.2 (0.1-0.6); RBC 4.45 10^6/uL (3.5-6.1); RED CELL DISTRIBUTION WIDTH 14.7 % (11.5-14.5); WHITE BLOOD COUNT 10.3 10^3/uL (4.5-11.0)
[2018-06-29 22:11] LABS: B-TYPE NATRIURETIC PEPTIDE 58.9 pg/mL (0-450); TROPONIN I < 0.01 ng/mL
[2018-06-29 22:30] LABS: ALB/GLOB RATIO 1.3 (1.1-1.8); ALBUMIN 4.2 g/dL (3.0-4.8); ALT/SGPT 39 U/L (7-56); AST/SGOT 39 U/L (14-36); BLOOD UREA NITROGEN 13 mg/dL (7-21); CALCIUM 9.3 mg/dL (8.4-10.5); GFR NON-AFRICAN AMERICAN > 60
[2018-06-29] MEDS ORDERED: Sodium Chloride 0.9% 1,000 ML IV STA (22:36)
[2018-06-29 22:44] VITALS: RESP 19
[2018-06-30] MEDS ORDERED: Insulin Regular 1 UNITS/0.01 ML ML SC STA (00:15)
[2018-06-30 01:13] VITALS: BP 144/92; PULSE 86; O2SAT 96
--- NOTE | 2018-06-30 09:16 | RAD ---
Date of service: 06/29/2018 HISTORY: asthma, cough/wheezing COMPARISON: 11/24/2017 FINDINGS: LUNGS: There is mild peribronchial thickening. No evidence of pneumonia PLEURA: No significant pleural effusion identified, no pneumothorax apparent. CARDIOVASCULAR: No aortic atherosclerotic calcification present. Mild cardiomegaly no pulmonary vascular congestion. OSSEOUS STRUCTURES: No significant abnormalities. VISUALIZED UPPER ABDOMEN: Normal. OTHER FINDINGS: None. IMPRESSION: There is mild peribronchial thickening. No evidence of pneumonia
== END 2018-06-30 01:13 | disposition home or self-care (01) ==
LOC: ED 17:54
DX: J45.909 Unspecified asthma, uncomplicated (principal); I10 Essential (primary) hypertension; E11.9 Type 2 diabetes mellitus without complications
CPT/HCPCS: 71045; 80053; 82948; 83735; 83880; 84484; 85025; 96360; 96361; 96372; 99284; J7030